=== PATIENT | female | born 1985 | race Two or more races ===

== ENCOUNTER 2018-08-03 16:32 | Emergency (ER) | payer SELFPAY ==
[~2018-08-03] VITALS: Ht 160 cm; Wt 82.0 kg
[2018-08-03 16:56] VITALS: BP 157/100
== END 2018-08-03 20:15 | disposition left against medical advice (07) ==
LOC: ER 16:32
DX: Z53.21 Procedure and treatment not carried out due to patient leaving prior to being seen by health care provider (principal)
CPT/HCPCS: 82962